=== PATIENT | male | born 1950 | race Caucasian/White ===

== ENCOUNTER 2024-01-02 02:31 | Inpatient (IN) | payer MEDICARE, OTHER ==
[~2024-01-02] VITALS: Ht 175.3 cm; Wt 95.3 kg
[2024-01-02] VITALS (8 sets, daily range): BP systolic 127–159; BP diastolic 80–94; PULSE 66–69; RESP 18–20; O2SAT 97–98
[2024-01-02] MEDS: NITROGLYCERIN 1GM OINT 1 INCH/1GM TD ONE (02:44)
[2024-01-02 02:47] LABS: BASOPHILS # (AUTO) 0.02 K/uL (0.00-0.20); BASOPHILS % (AUTO) 0.3 % (0.0-5.0); EOSINOPHILS # (AUTO) 0.13 K/uL (0.00-0.70); HEMATOCRIT 41.3 % (42-54); IMMATURE GRANULOCYTE ABSOLUTE 0.01 K/uL (0-1); LYMPHOCYTES # (AUTO) 1.3 K/uL (1.0-4.8); LYMPHOCYTES % (AUTO) 20.6 % (21.0-51.0); MEAN CORPUSCULAR HEMOGLOBIN 29.4 pg (27.0-33.0); MEAN CORPUSCULAR HGB CONC 33.2 g/dL (32.0-36.0); MEAN CORPUSCULAR VOLUME 88.6 fL (79-99); MONOCYTES # (AUTO) 0.7 K/uL (0.1-1.0); MONOCYTES % (AUTO) 10.5 % (3.0-13.0); NEUTROPHILS # (AUTO) 4.2 K/uL (1.8-7.7); NEUTROPHILS % (AUTO) 66.4 % (40.0-77.0); PLATELET COUNT (AUTO) 205 K/uL (130-400); RED BLOOD CELL COUNT(AUTO) 4.66 MIL/uL (4.50-6.20); RED CELL DISTRIBUTION WIDTH 13.7 % (11.0-15.5); WHITE BLOOD COUNT (AUTO) 6.4 K/uL (4.8-10.8)
[2024-01-02 02:57] LABS: CREATININE 2.2 mg/dL (0.5-1.5); POTASSIUM 3.4 mmol/L (3.5-5.1)
[2024-01-02 02:58] LABS: INR 0.94 (0.85-1.15); PROTHROMBIN TIME 10.9 SEC (9.6-11.6)
[2024-01-02 03:00] LABS: PARTIAL THROMBOPLASTIN TIME 28.2 SEC (26.3-35.5)
[2024-01-02 03:02] LABS: ALBUMIN 3.3 g/dL (3.5-5.0); BILIRUBIN,TOTAL 0.3 mg/dL (0.2-1.0)
[2024-01-02 03:13] LABS: B-TYPE NATRIURETIC PEPTIDE 685 pg/mL (0-100)
[2024-01-02] MEDS: FUROSEMIDE 40MG VIAL IV ONE (03:42)
[2024-01-02] MEDS: ACETAMINOPHEN 325 MG TAB ONE (03:44)
[2024-01-02] MEDS ORDERED: MELA10TA2 PO (04:00)
[2024-01-02] MEDS ORDERED: CARV6.25 PO (04:00)
[2024-01-02] MEDS ORDERED: CLOP75TA32 PO (04:00)
[2024-01-02] MEDS ORDERED: HYDR25TA67 PO (04:00)
[2024-01-02] MEDS ORDERED: CETI10TA57 PO (04:00)
[2024-01-02] MEDS ORDERED: PANT40TA54 PO (04:00)
[2024-01-02] MEDS ORDERED: CYAN100099 PO (04:00)
[2024-01-02] MEDS ORDERED: APIX5TAB PO (04:00)
[2024-01-02] MEDS ORDERED: ATOR40TA71 PO (04:00)
[2024-01-02] MEDS ORDERED: SERT-438 PO (04:00)
[2024-01-02] MEDS ORDERED: AMLO-258 PO (04:00)
[2024-01-02] MEDS ORDERED: TAMS-1 PO (04:00)
[2024-01-02] MEDS ORDERED: AEC81 PO (04:00)
[2024-01-02] MEDS: POTASSIUM BICARB/CIT AC 25 MEQ TABLET.EFF ONE (05:10)
[2024-01-02] MEDS: POTASSIUM BICARB/CIT AC 25 MEQ TABLET.EFF PO ONE (05:10)
[2024-01-02] MEDS ORDERED: ACETAMINOPHEN 325 MG TAB PO PRN ×2 (05:30)
[2024-01-02] MEDS ORDERED: GLUCAGON 1MG KIT 1 MG ML IM PRN (05:30)
[2024-01-02] MEDS ORDERED: MAGNESIUM 2GM PREMIX 50ML 50 ML IV PRN (05:30)
[2024-01-02] MEDS: NITROGLYCERIN 1GM OINT 1 INCH/1GM TD SCH (05:30)
[2024-01-02] MEDS ORDERED: DEXTROSE 50%-WATER 50 ML DISP.SYRIN IV PRN (05:30)
[2024-01-02] MEDS: HEPARIN 25,000 UNITS/250ML D5W 250 ML IV SCH (05:46)
[2024-01-02] MEDS: HEPARIN 5,000 UNIT VIAL IV PRN (05:46)
[2024-01-02 05:51] LABS: BASOPHILS # (AUTO) 0.02 K/uL (0.00-0.20); BASOPHILS % (AUTO) 0.4 % (0.0-5.0); EOSINOPHILS # (AUTO) 0.05 K/uL (0.00-0.70); EOSINOPHILS % (AUTO) 0.9 % (0.0-8.0); HEMATOCRIT 36.7 % (42-54); IMMATURE GRANULOCYTE ABSOLUTE 0.02 K/uL (0-1); LYMPHOCYTES # (AUTO) 1.3 K/uL (1.0-4.8); LYMPHOCYTES % (AUTO) 23.3 % (21.0-51.0); MEAN CORPUSCULAR HEMOGLOBIN 29.6 pg (27.0-33.0); MEAN CORPUSCULAR HGB CONC 34.1 g/dL (32.0-36.0); MEAN CORPUSCULAR VOLUME 86.8 fL (79-99); MONOCYTES # (AUTO) 0.5 K/uL (0.1-1.0); MONOCYTES % (AUTO) 9.5 % (3.0-13.0); NEUTROPHILS # (AUTO) 3.7 K/uL (1.8-7.7); NEUTROPHILS % (AUTO) 65.5 % (40.0-77.0); PLATELET COUNT (AUTO) 193 K/uL (130-400); RED BLOOD CELL COUNT(AUTO) 4.23 MIL/uL (4.50-6.20); RED CELL DISTRIBUTION WIDTH 13.7 % (11.0-15.5); WHITE BLOOD COUNT (AUTO) 5.6 K/uL (4.8-10.8)
[2024-01-02] MEDS: INSULIN HUMULIN R 100 UNIT/ML 3ML SQ SCH ×2 (06:00→20:17)
[2024-01-02] MEDS ORDERED: MELATONIN 5 MG TABLET PO PRN (07:00)
[2024-01-02] MEDS: ATORVASTATIN 40 MG TABLET PO SCH (08:55)
[2024-01-02] MEDS: CYANOCOBALAMIN (VITAMIN B-12) 1,000 MCG TABLET PO SCH (08:55)
[2024-01-02] MEDS: TAMSULOSIN HCL 0.4 MG CAP.ER.24H PO SCH (08:55)
[2024-01-02] MEDS: FAMOTIDINE 20MG VIAL IV SCH (08:55)
[2024-01-02] MEDS: ASPIRIN 81 MG EC TAB PO SCH (08:55)
[2024-01-02] MEDS: FUROSEMIDE 20MG VIAL IV SCH (08:56)
[2024-01-02] MEDS: CARVEDILOL 6.25 MG TABLET PO SCH (08:57)
[2024-01-02] MEDS: HYDRALAZINE 25MG TABLET PO SCH (08:59)
[2024-01-02 12:31] LABS: INR 1.02 (0.85-1.15); PROTHROMBIN TIME 11.8 SEC (9.6-11.6)
[2024-01-02 12:52] LABS: PARTIAL THROMBOPLASTIN TIME > 139.0 SEC (26.3-35.5)
[2024-01-02] MEDS: CLOPIDOGREL 75MG TAB PO SCH (13:47)
[2024-01-02] MEDS: VERAPAMIL HCL 80 MG TABLET PO SCH (13:48)
[2024-01-02] MEDS ORDERED: ATROPINE 1MG SYG IVP ONE (13:51)
[2024-01-02] MEDS: SERTRALINE HCL 50 MG TABLET PO SCH (20:08)
[2024-01-03] VITALS (84 sets, daily range): BP systolic 74–163; BP diastolic 30–111; PULSE 47–158; RESP 12–27; O2SAT 94–99
[2024-01-03] MEDS: HYDRALAZINE 20MG/ML VIAL IV PRN (03:05)
[2024-01-03] MEDS: MORPHINE 2 MG SYG IVP STA (04:07)
[2024-01-03] MEDS: MORPHINE 2 MG SYG ONE (04:07)
[2024-01-03] MEDS: NITROGLYCERIN 50MG/D5W 250ML 1 BOT ONE (04:10)
[2024-01-03] MEDS ORDERED: NITROGLYCERIN 50MG/D5W 250ML 250 BOT IV PRN (04:10)
[2024-01-03 04:21] LABS: BASOPHILS # (AUTO) 0.02 K/uL (0.00-0.20); BASOPHILS % (AUTO) 0.4 % (0.0-5.0); EOSINOPHILS # (AUTO) 0.09 K/uL (0.00-0.70); EOSINOPHILS % (AUTO) 1.8 % (0.0-8.0); HEMATOCRIT 37.4 % (42-54); IMMATURE GRANULOCYTE ABSOLUTE 0.01 K/uL (0-1); LYMPHOCYTES # (AUTO) 1.8 K/uL (1.0-4.8); MEAN CORPUSCULAR HEMOGLOBIN 29.3 pg (27.0-33.0); MEAN CORPUSCULAR HGB CONC 33.4 g/dL (32.0-36.0); MEAN CORPUSCULAR VOLUME 87.8 fL (79-99); MONOCYTES # (AUTO) 0.5 K/uL (0.1-1.0); MONOCYTES % (AUTO) 10.5 % (3.0-13.0); NEUTROPHILS # (AUTO) 2.5 K/uL (1.8-7.7); NEUTROPHILS % (AUTO) 51.1 % (40.0-77.0); PLATELET COUNT (AUTO) 172 K/uL (130-400); RED BLOOD CELL COUNT(AUTO) 4.26 MIL/uL (4.50-6.20); RED CELL DISTRIBUTION WIDTH 13.8 % (11.0-15.5)
[2024-01-03 04:46] LABS: B-TYPE NATRIURETIC PEPTIDE 634 pg/mL (0-100)
[2024-01-03 04:55] LABS: ALBUMIN 3.1 g/dL (3.5-5.0); BILIRUBIN,TOTAL 0.5 mg/dL (0.2-1.0); CREATININE 2.3 mg/dL (0.5-1.5); POTASSIUM 4.3 mmol/L (3.5-5.1); TOTAL PROTEIN, SERUM 6.5 g/dL (6.0-8.3)
[2024-01-03 05:32] LABS: MAGNESIUM 1.9 mg/dL (1.80-2.40)
[2024-01-03] MEDS: ONDANSETRON 4MG INJ IV PRN (05:45)
[2024-01-03] MEDS ORDERED: MAGNESIUM 2GM PREMIX 50ML 50 ML IV PRN (06:00)
[2024-01-03] MEDS: MORPHINE 2 MG SYG IVP ONE (06:01)
[2024-01-03] MEDS: 0.9%NACL 1000ML 1,000 ML IV ONE (06:18)
[2024-01-03] MEDS: AMIODARONE 150MG VIAL ONE (06:18)
[2024-01-03] MEDS: ATROPINE 1MG SYG IVP STA (06:28)
[2024-01-03] MEDS ORDERED: PHENYLEPHRINE HCL IV PRN (06:30)
[2024-01-03] MEDS ORDERED: PHENYLEPHRINE HCL 10 MG in 0.9% NACL 250ML 250 ML IV PRN (06:30)
[2024-01-03] MEDS ORDERED: MORPHINE 2 MG SYG IVP PRN ×2 (06:30→11:00)
[2024-01-03] MEDS ORDERED: NACL 0.9% IV PRN (06:30)
[2024-01-03] MEDS ORDERED: AMIODARONE 150MG VIAL 150 MG in DEXTROSE 5%-WATER 100 ML IV SCH (07:05)
[2024-01-03] MEDS ORDERED: MIDAZOLAM HCL 1 MG/ML 2ML VIAL ONE (07:12)
[2024-01-03] MEDS ORDERED: ATROPINE 1MG SYG IVP ONE (07:12)
[2024-01-03] MEDS ORDERED: FENTANYL CITRATE PF 50 MCG/1 ML 2ML VIAL ONE (07:12)
[2024-01-03] MEDS ORDERED: HEPARIN 10,000 UNIT/10ML (1,000 UNIT/ML) VIAL ONE (07:12)
[2024-01-03] MEDS ORDERED: IOHEXOL-350 75 ML VIAL IV ONE (07:12)
[2024-01-03] MEDS ORDERED: NITROGLYCERIN 50MG VIAL ONE (07:13)
[2024-01-03] MEDS ORDERED: LIDOCAINE HCL 400MG/20ML VIAL ONE (07:13)
[2024-01-03] MEDS ORDERED: AMIODARONE 900MG VIAL 360 MG in DEXTROSE 5%-WATER 200 ML IV SCH (07:15)
[2024-01-03] MEDS ORDERED: LIDOCAINE 2G/250ML 0 ML IV ONE (07:31)
[2024-01-03] MEDS ORDERED: LIDOCAINE PF 100MG/5ML (2%) SYRINGE 5ML ONE (07:37)
[2024-01-03] MEDS ORDERED: TICAGRELOR 90 MG TABLET ONE (07:49)
[2024-01-03] MEDS: AMIODARONE 900MG VIAL IV ONE (08:00)
[2024-01-03] MEDS ORDERED: PHENYLEPHRINE HCL 10 MG/ML 1ML VIAL IV ONE (08:08)
[2024-01-03] MEDS ORDERED: EPTIFIBATIDE 2 MG/ML 10 ML VIAL IVP ONE ×2 (08:26→09:00)
[2024-01-03 10:32] LABS: ABG HCO3 22.2 mmol/L (21.0-28.0); ABG OXYGEN SATURATION 98.7 % (95.0-99.0); ABG PCO2 45 mmHg (35-48); ABG PH 7.311 (7.35-7.450); CARBON MONOXIDE 0.2; HHb 1.3; PO2, ARTERIAL BG 163.2 mmHg (83.0-108.0); VENT MODE, BG PNRM (ROOM AIR)
[2024-01-03] MEDS: LIDOCAINE 2G/250ML 250 ML IV PRN (11:00)
[2024-01-03] MEDS ORDERED: 0.9%NACL 50ML IV SCH (11:30)
[2024-01-03] MEDS: 0.9%NACL 1000ML 1,000 ML IV SCH (11:31)
[2024-01-03] MEDS: CALCIUM GLUC 1GM/10ML VIAL IVPB SCH (11:47)
[2024-01-03] MEDS: METOPROLOL TARTRATE 1 MG/ML 5ML VIAL IV ONE (11:47)
[2024-01-03] MEDS: PHARMACY COMMUNICATION MISC SCH ×2 (13:00→15:30)
[2024-01-03] MEDS: AMIODARONE 540 MG in DEXTROSE 5%-WATER 300 ML IV SCH (14:05)
[2024-01-03] MEDS: METOPROLOL TARTRATE 50 MG TAB PO SCH (14:14)
[2024-01-03 15:25] LABS: INR 0.94 (0.85-1.15)
[2024-01-03 15:27] LABS: MAGNESIUM 2.5 mg/dL (1.80-2.40); PARTIAL THROMBOPLASTIN TIME 32.5 SEC (26.3-35.5); POTASSIUM 4.7 mmol/L (3.5-5.1)
[2024-01-03 17:16] LABS: SARS-CoV-2, RNA, NAAT NEGATIVE SARS CoV-2 (NEGATIVE)
[2024-01-03 17:24] LABS: INFLUENZA TYPE A Negative For Type A (NEGATIVE); INFLUENZA TYPE B Negative For Type B (NEGATIVE)
[2024-01-03] MEDS: TICAGRELOR 90 MG TABLET PO SCH (20:17)
[2024-01-03 21:44] LABS: INR 0.94 (0.85-1.15); PROTHROMBIN TIME 10.9 SEC (9.6-11.6)
[2024-01-03 21:45] LABS: PARTIAL THROMBOPLASTIN TIME 43.7 SEC (26.3-35.5)
[2024-01-03] MEDS ORDERED: HEPARIN PF LOCK 500 UNIT/5ML IV ONE (22:00)
[2024-01-03] MEDS: HEPARIN 5,000 UNIT VIAL IV ONE (22:37)
[2024-01-04] VITALS (28 sets, daily range): BP systolic 110–164; BP diastolic 55–87; PULSE 53–98; RESP 12–22; O2SAT 96–100
[2024-01-04 04:01] LABS: HEMATOCRIT 35.1 % (42-54); MEAN CORPUSCULAR HEMOGLOBIN 28.7 pg (27.0-33.0); MEAN CORPUSCULAR HGB CONC 31.6 g/dL (32.0-36.0); MEAN CORPUSCULAR VOLUME 90.7 fL (79-99); RED BLOOD CELL COUNT(AUTO) 3.87 MIL/uL (4.50-6.20); RED CELL DISTRIBUTION WIDTH 14.5 % (11.0-15.5)
[2024-01-04 04:13] LABS: INR 0.98 (0.85-1.15); PROTHROMBIN TIME 11.4 SEC (9.6-11.6)
[2024-01-04 04:26] LABS: ALBUMIN 2.9 g/dL (3.5-5.0); BILIRUBIN,TOTAL 0.6 mg/dL (0.2-1.0); CREATININE 2.9 mg/dL (0.5-1.5); MAGNESIUM 2.5 mg/dL (1.80-2.40); POTASSIUM 4.8 mmol/L (3.5-5.1); TOTAL PROTEIN, SERUM 6.1 g/dL (6.0-8.3)
[2024-01-04 04:35] LABS: PARTIAL THROMBOPLASTIN TIME > 139.0 SEC (26.3-35.5)
[2024-01-04 08:52] LABS: ABG BASE EXCESS -3.4 mmol/L (-2.0-3.0); ABG HCO3 24.5 mmol/L (21.0-28.0); ABG OXYGEN SATURATION 99.1 % (95.0-99.0); ABG PCO2 56 mmHg (35-48); ABG PH 7.261 (7.35-7.450); PO2, ARTERIAL BG 189.9 mmHg (83.0-108.0); VENT MODE, BG NRBM (ROOM AIR)
[2024-01-04 09:54] LABS: INR 0.98 (0.85-1.15); PROTHROMBIN TIME 11.4 SEC (9.6-11.6)
[2024-01-04 10:37] LABS: PARTIAL THROMBOPLASTIN TIME > 139.0 SEC (26.3-35.5)
[2024-01-04] MEDS: POLYETHYLENE GLYCOL 3350 17 GM POWD.PACK PO ONE (11:08)
[2024-01-04 14:26] LABS: ABG BASE EXCESS -3.8 mmol/L (-2.0-3.0); ABG HCO3 22.4 mmol/L (21.0-28.0); ABG OXYGEN SATURATION 95.3 % (95.0-99.0); ABG PCO2 45 mmHg (35-48); ABG PH 7.315 (7.35-7.450); PO2, ARTERIAL BG 82.7 mmHg (83.0-108.0); VENT MODE, BG NC 2L (ROOM AIR)
[2024-01-04] MEDS: 0.9%NACL 1000ML 1,000 ML IV SCH (14:55)
[2024-01-04 15:41] LABS: APPEARANCE,URINE CLEAR (CLEAR); BILIRUBIN,URINE NEGATIVE (NEGATIVE); COLOR,URINE LIGHT-YELLOW (YELLOW); GLUCOSE, URINE (UA) 30 mg/dL (NEGATIVE); KETONES,URINE NEGATIVE (NEGATIVE); LEUKOCYTE ESTERASE ,URINE NEGATIVE Leu/uL (NEGATIVE); NITRATE,URINE NEGATIVE (NEGATIVE); OCCULT BLOOD,URINE NEGATIVE (NEGATIVE); PH,URINE 5.5 (5.0-8.0); PROTEIN,URINE 70 mg/dL (NEGATIVE); UROBILINOGEN,URINE 0.2 mg/dL (0.2-1.0)
[2024-01-04 15:44] LABS: ADD UA MICROSCOPIC YES
[2024-01-04 15:46] LABS: BACTERIA,URINE RARE /HPF (None Seen); MUCUS,URINE RARE LPF (None Seen); OTHER CASTS, URINE 1 /LPF (None Seen); RBC,URINE 0-1 /HPF (0-1); SQUAMOUS EPITHELIAL CELL,UR RARE /HPF (0-2); WBC,URINE 0-1 /HPF (0-1); YEAST,URINE BUDDING FEW /HPF (None Seen)
[2024-01-04] MEDS: LIDOCAINE HCL MPF 1% 5ML VIAL ONE (18:29)
[2024-01-04] MEDS: LIDOCAINE HCL-MPF 1% 2ML VIAL ONE (18:30)
[2024-01-04 19:10] LABS: INR 0.96 (0.85-1.15); PROTHROMBIN TIME 11.2 SEC (9.6-11.6)
[2024-01-04 19:12] LABS: PARTIAL THROMBOPLASTIN TIME 30.7 SEC (26.3-35.5)
[2024-01-04 19:41] LABS: MAGNESIUM 2.4 mg/dL (1.80-2.40); POTASSIUM 4.5 mmol/L (3.5-5.1)
[2024-01-04] MEDS: METOPROLOL TARTRATE 25 MG TAB PO SCH (21:13)
[2024-01-04 21:38] LABS: INR 0.97 (0.85-1.15); PROTHROMBIN TIME 11.3 SEC (9.6-11.6)
[2024-01-04 21:39] LABS: PARTIAL THROMBOPLASTIN TIME 28.9 SEC (26.3-35.5)
[2024-01-04] MEDS: AMIODARONE 900MG VIAL 360 MG in DEXTROSE 5%-WATER 200 ML IV SCH (22:47)
[2024-01-05] VITALS (43 sets, daily range): BP systolic 132–194; BP diastolic 64–113; PULSE 59–98; RESP 13–33; O2SAT 96–97
[2024-01-05 05:05] LABS: HEMATOCRIT 34.8 % (42-54); MEAN CORPUSCULAR HEMOGLOBIN 29.6 pg (27.0-33.0); MEAN CORPUSCULAR VOLUME 89.7 fL (79-99); PLATELET COUNT (AUTO) 136 K/uL (130-400); RED BLOOD CELL COUNT(AUTO) 3.88 MIL/uL (4.50-6.20)
[2024-01-05 05:31] LABS: BILIRUBIN,TOTAL 0.8 mg/dL (0.2-1.0); CREATININE 3.2 mg/dL (0.5-1.5); MAGNESIUM 2.4 mg/dL (1.80-2.40); PHOSPHORUS 5.9 mg/dL (2.5-4.9); POTASSIUM 4.6 mmol/L (3.5-5.1); TOTAL PROTEIN, SERUM 6.3 g/dL (6.0-8.3); URIC ACID 7.2 mg/dL (2.6-7.2)
[2024-01-05] MEDS: LACTULOSE 20 GM/30 ML UDCUP PO PRN (05:38)
[2024-01-05] MEDS: AMIODARONE 900MG VIAL 540 MG in DEXTROSE 5%-WATER 300 ML IV ONE (05:38)
[2024-01-05 06:10] LABS: LYMPHOCYTES % (MANUAL) 16 % (22-44); MONOCYTES % (MANUAL) 13 % (2-9); SEGMENTED NEUTROPHILS % 71 % (40-70); TOTAL CELLS COUNTED 100
[2024-01-05 06:11] LABS: MAN.DIFF COMMENT-IMPRESSION MANUAL DIFFERENTIAL; PLATELET MORPHOLOGY COMMENT ADEQUATE; WBC MORPHOLOGY SMUDGE CELLS 1+
[2024-01-05 07:58] LABS: ABG BASE EXCESS -3.6 mmol/L (-2.0-3.0); ABG HCO3 20.2 mmol/L (21.0-28.0); ABG OXYGEN SATURATION 96.4 % (95.0-99.0); ABG PCO2 34 mmHg (35-48); ABG PH 7.399 (7.35-7.450); DEVICE COMMENT SYLVIA RN LR; PO2, ARTERIAL BG 83.6 mmHg (83.0-108.0); VENT MODE, BG HFNC (ROOM AIR)
[2024-01-05] MEDS: Vitamin B Complex/Vit C/Folic Acid PO SCH (09:04)
[2024-01-05] MEDS: POLYETHYLENE GLYCOL 3350 17 GM POWD.PACK PO SCH (09:05)
[2024-01-05 16:44] LABS: CHLORIDE,URINE RANDOM 93 mmol/L (110-250); CREATININE,URINE RANDOM 30 mg/dL (30-135); POTASSIUM,URINE RANDOM 26 mmol/L (25-125); SODIUM,URINE RANDOM 73 mmol/l (40-220)
[2024-01-05 18:09] LABS: CHOLESTEROL 104 mg/dL (<200); HDL CHOLESTEROL 51 mg/dL (29-71); LDL DIRECT 51 mg/dL (0-99); TRIGLYCERIDES 91 mg/dL (30-200)
[2024-01-05 19:17] LABS: HEMOGLOBIN A1C 7.9 % (4.0-6.0)
[2024-01-05] MEDS: METOPROLOL TARTRATE 25 MG TAB PO SCH (21:12)
[2024-01-06] VITALS (71 sets, daily range): BP systolic 131–181; BP diastolic 64–100; PULSE 53–89; RESP 6–32; O2SAT 93–98
[2024-01-06 02:22] LABS: EOSINOPHILS # (AUTO) 0.04 K/uL (0.00-0.70); EOSINOPHILS % (AUTO) 0.7 % (0.0-8.0); HEMATOCRIT 31.3 % (42-54); IMMATURE GRANULOCYTE ABSOLUTE 0.02 K/uL (0-1); LYMPHOCYTES # (AUTO) 0.9 K/uL (1.0-4.8); LYMPHOCYTES % (AUTO) 14.4 % (21.0-51.0); MEAN CORPUSCULAR HEMOGLOBIN 29.4 pg (27.0-33.0); MEAN CORPUSCULAR HGB CONC 33.9 g/dL (32.0-36.0); MEAN CORPUSCULAR VOLUME 86.9 fL (79-99); MONOCYTES # (AUTO) 0.7 K/uL (0.1-1.0); NEUTROPHILS # (AUTO) 4.4 K/uL (1.8-7.7); NEUTROPHILS % (AUTO) 73.6 % (40.0-77.0); PLATELET COUNT (AUTO) 137 K/uL (130-400); RED CELL DISTRIBUTION WIDTH 13.9 % (11.0-15.5)
[2024-01-06 02:36] LABS: BILIRUBIN,TOTAL 0.7 mg/dL (0.2-1.0); CREATININE 2.9 mg/dL (0.5-1.5); MAGNESIUM 2.2 mg/dL (1.80-2.40); PHOSPHORUS 4.9 mg/dL (2.5-4.9); POTASSIUM 3.8 mmol/L (3.5-5.1); TOTAL PROTEIN, SERUM 6.3 g/dL (6.0-8.3)
[2024-01-06] MEDS: NITROGLYCERIN 0.4 MG SL TAB SL ONE (06:48)
[2024-01-06] MEDS ORDERED: NITROGLYCERIN 0.4 MG SL TAB SL PRN (07:00)
[2024-01-06] MEDS: FUROSEMIDE 20MG VIAL IV SCH (07:50)
[2024-01-06] MEDS: AMLODIPINE 2.5 MG TAB PO SCH (07:51)
[2024-01-06] MEDS: FUROSEMIDE 20MG VIAL ONE (07:51)
[2024-01-06] MEDS: AMIODARONE 200 MG TABLET PO SCH (07:51)
[2024-01-06] MEDS ORDERED: METOPROLOL TARTRATE 25 MG TAB PO SCH (09:00)
[2024-01-06] MEDS: METOPROLOL TARTRATE 25 MG TAB PO SCH (09:28)
[2024-01-06] MEDS: LACTULOSE 20 GM/30 ML UDCUP PO ONE (12:08)
[2024-01-06] MEDS: INSULIN GLARGINE 100 UNITS/ML 10 ML VIAL SQ SCH (19:37)
[2024-01-07] VITALS (44 sets, daily range): BP systolic 100–176; BP diastolic 34–99; PULSE 54–69; RESP 13–23; O2SAT 94–100
[2024-01-07 04:47] LABS: BASOPHILS # (AUTO) 0.01 K/uL (0.00-0.20); BASOPHILS % (AUTO) 0.2 % (0.0-5.0); EOSINOPHILS # (AUTO) 0.03 K/uL (0.00-0.70); EOSINOPHILS % (AUTO) 0.5 % (0.0-8.0); HEMATOCRIT 34.6 % (42-54); IMMATURE GRANULOCYTE ABSOLUTE 0.03 K/uL (0-1); MEAN CORPUSCULAR HEMOGLOBIN 29.5 pg (27.0-33.0); MEAN CORPUSCULAR HGB CONC 32.9 g/dL (32.0-36.0); MEAN CORPUSCULAR VOLUME 89.6 fL (79-99); MONOCYTES # (AUTO) 0.8 K/uL (0.1-1.0); MONOCYTES % (AUTO) 12.7 % (3.0-13.0); NEUTROPHILS # (AUTO) 4.2 K/uL (1.8-7.7); NEUTROPHILS % (AUTO) 70.1 % (40.0-77.0); PLATELET COUNT (AUTO) 150 K/uL (130-400); RED BLOOD CELL COUNT(AUTO) 3.86 MIL/uL (4.50-6.20); RED CELL DISTRIBUTION WIDTH 13.7 % (11.0-15.5)
[2024-01-07 05:15] LABS: BILIRUBIN,TOTAL 0.9 mg/dL (0.2-1.0); CREATININE 2.9 mg/dL (0.5-1.5); MAGNESIUM 2.3 mg/dL (1.80-2.40); POTASSIUM 3.3 mmol/L (3.5-5.1); TOTAL PROTEIN, SERUM 6.6 g/dL (6.0-8.3)
[2024-01-07] MEDS: KCL 20 MEQ ERTAB PO PRN (06:18)
[2024-01-07] MEDS: KCL 20 MEQ ERTAB PO ONE (06:21)
[2024-01-07] MEDS: TAMSULOSIN HCL 0.4 MG CAP.ER.24H PO SCH (12:25)
[2024-01-07] MEDS: POTASSIUM CHLORIDE 20MEQ/100ML 100 ML IV ONE (13:30)
[2024-01-07] MEDS ORDERED: HEPARIN 5,000 UNIT VIAL SQ SCH (14:00)
[2024-01-07] MEDS ORDERED: BISACODYL 10 MG SUPP.RECT RC ONE ×2 (14:30→15:00)
[2024-01-07 15:11] LABS: MAGNESIUM 2.2 mg/dL (1.80-2.40); POTASSIUM 3.9 mmol/L (3.5-5.1)
[2024-01-07] MEDS: BISACODYL 10 MG SUPP.RECT RC ONE (15:11)
[2024-01-08] VITALS (24 sets, daily range): BP systolic 106–162; BP diastolic 48–90; PULSE 56–102; RESP 14–32; O2SAT 95–98
[2024-01-08 02:10] LABS: HEMATOCRIT 34.3 % (42-54); MEAN CORPUSCULAR HEMOGLOBIN 29.3 pg (27.0-33.0); MEAN CORPUSCULAR HGB CONC 34.1 g/dL (32.0-36.0); MEAN CORPUSCULAR VOLUME 85.8 fL (79-99); PLATELET COUNT (AUTO) 177 K/uL (130-400); RED CELL DISTRIBUTION WIDTH 13.6 % (11.0-15.5); WHITE BLOOD COUNT (AUTO) 6.2 K/uL (4.8-10.8)
[2024-01-08 02:23] LABS: ALBUMIN 2.9 g/dL (3.5-5.0); BILIRUBIN,TOTAL 0.9 mg/dL (0.2-1.0); CREATININE 2.9 mg/dL (0.5-1.5); MAGNESIUM 2.2 mg/dL (1.80-2.40); POTASSIUM 3.3 mmol/L (3.5-5.1); TOTAL PROTEIN, SERUM 6.5 g/dL (6.0-8.3)
[2024-01-08] MEDS: POTASSIUM CHLORIDE 20MEQ/100ML 100 ML IV PRN (02:27)
[2024-01-08 02:34] LABS: LYMPHOCYTES % (MANUAL) 16 % (22-44); MAN.DIFF COMMENT-IMPRESSION MANUAL DIFFERENTIAL; MONOCYTES % (MANUAL) 11 % (2-9); SEGMENTED NEUTROPHILS % 73 % (40-70); TOTAL CELLS COUNTED 100
[2024-01-08 02:36] LABS: PLATELET MORPHOLOGY COMMENT ADEQUATE
[2024-01-08] MEDS: ISOSORBIDE DINITRATE 10MG TAB PO SCH (09:31)
[2024-01-08] MEDS: KCL 20 MEQ ERTAB PO ONE (12:07)
[2024-01-08] MEDS: FUROSEMIDE 40 MG TABLET PO ONE (12:34)
[2024-01-08] MEDS: HYDRALAZINE 25MG TABLET PO SCH (14:12)
[2024-01-08] MEDS: FUROSEMIDE 40 MG TABLET PO SCH (17:38)
[2024-01-08] MEDS: INSULIN GLARGINE 100 UNITS/ML 10 ML VIAL SQ SCH (21:06)
[2024-01-09] VITALS (10 sets, daily range): BP systolic 122–140; BP diastolic 65–78; PULSE 58–86; RESP 16–20; O2SAT 96–100
[2024-01-09 05:13] LABS: HEMATOCRIT 33.8 % (42-54); MEAN CORPUSCULAR HEMOGLOBIN 29.8 pg (27.0-33.0); MEAN CORPUSCULAR HGB CONC 33.7 g/dL (32.0-36.0); MEAN CORPUSCULAR VOLUME 88.5 fL (79-99); PLATELET COUNT (AUTO) 182 K/uL (130-400); RED BLOOD CELL COUNT(AUTO) 3.82 MIL/uL (4.50-6.20); RED CELL DISTRIBUTION WIDTH 13.5 % (11.0-15.5); WHITE BLOOD COUNT (AUTO) 6.6 K/uL (4.8-10.8)
[2024-01-09 05:33] LABS: ALBUMIN 2.9 g/dL (3.5-5.0); BILIRUBIN,TOTAL 0.7 mg/dL (0.2-1.0); CREATININE 3.2 mg/dL (0.5-1.5); MAGNESIUM 2.2 mg/dL (1.80-2.40); POTASSIUM 3.7 mmol/L (3.5-5.1); TOTAL PROTEIN, SERUM 6.4 g/dL (6.0-8.3)
[2024-01-09 05:56] LABS: BAND NEUTROPHILS % (MANUAL) 6 % (0-2); EOSINOPHILS % (MANUAL) 1 % (1-6); LYMPHOCYTES % (MANUAL) 16 % (22-44); MONOCYTES % (MANUAL) 9 % (2-9); SEGMENTED NEUTROPHILS % 68 % (40-70); TOTAL CELLS COUNTED 100
[2024-01-09 05:57] LABS: MAN.DIFF COMMENT-IMPRESSION MANUAL DIFFERENTIAL; WBC MORPHOLOGY CONSISTENT W/DIFF
[2024-01-09 05:58] LABS: PLATELET MORPHOLOGY COMMENT PLT CLUMPS PRESENT
[2024-01-09] MEDS: INSULIN HUMULIN R 100 UNIT/ML 3ML SQ SCH (16:31)
[2024-01-09] MEDS: APIXABAN 5 MG TABLET PO SCH (21:14)
[2024-01-09] MEDS: INSULIN GLARGINE 100 UNITS/ML 10 ML VIAL SQ SCH (21:56)
[2024-01-10] VITALS (11 sets, daily range): BP systolic 122–137; BP diastolic 71–76; PULSE 57–76; RESP 16–22; O2SAT 96–100
[2024-01-10 05:53] LABS: HEMATOCRIT 34.8 % (42-54); MEAN CORPUSCULAR HEMOGLOBIN 29.4 pg (27.0-33.0); MEAN CORPUSCULAR HGB CONC 33.3 g/dL (32.0-36.0); MEAN CORPUSCULAR VOLUME 88.3 fL (79-99); RED BLOOD CELL COUNT(AUTO) 3.94 MIL/uL (4.50-6.20); RED CELL DISTRIBUTION WIDTH 13.4 % (11.0-15.5); WHITE BLOOD COUNT (AUTO) 6.8 K/uL (4.8-10.8)
[2024-01-10 06:17] LABS: ALBUMIN 2.8 g/dL (3.5-5.0); BILIRUBIN,TOTAL 0.7 mg/dL (0.2-1.0); CREATININE 2.7 mg/dL (0.5-1.5); MAGNESIUM 2.3 mg/dL (1.80-2.40); PHOSPHORUS 4.8 mg/dL (2.5-4.9); POTASSIUM 3.8 mmol/L (3.5-5.1); TOTAL PROTEIN, SERUM 6.6 g/dL (6.0-8.3)
[2024-01-11 03:37] VITALS: BP 134/75; PULSE 68; RESP 16
[2024-01-11 04:38] LABS: HEMATOCRIT 33.8 % (42-54); MEAN CORPUSCULAR HEMOGLOBIN 29.9 pg (27.0-33.0); MEAN CORPUSCULAR HGB CONC 34.6 g/dL (32.0-36.0); MEAN CORPUSCULAR VOLUME 86.4 fL (79-99); RED BLOOD CELL COUNT(AUTO) 3.91 MIL/uL (4.50-6.20); RED CELL DISTRIBUTION WIDTH 13.5 % (11.0-15.5); WHITE BLOOD COUNT (AUTO) 6.8 K/uL (4.8-10.8)
[2024-01-11 04:56] LABS: ALBUMIN 2.8 g/dL (3.5-5.0); BILIRUBIN,TOTAL 0.5 mg/dL (0.2-1.0); CREATININE 2.7 mg/dL (0.5-1.5); MAGNESIUM 2.2 mg/dL (1.80-2.40); POTASSIUM 3.3 mmol/L (3.5-5.1); TOTAL PROTEIN, SERUM 6.7 g/dL (6.0-8.3)
[2024-01-11 08:08] VITALS: BP 134/79; PULSE 64; RESP 16
[2024-01-11 09:10] VITALS: PULSE 66; PULSE 82; RESP 18; RESP 20; O2SAT 96; O2SAT 98
[2024-01-11 09:15] VITALS: O2SAT 97
[2024-01-11 12:00] VITALS: BP 138/73; PULSE 62; RESP 18
[2024-01-11 13:39] VITALS: BP 130/69; PULSE 61
[2024-01-11] MEDS: KCL 20 MEQ ERTAB PO ONE (14:26)
[2024-01-11] MEDS ORDERED: INSLAN SQ (14:29)
[2024-01-11] MEDS ORDERED: HYDR25 PO (14:29)
[2024-01-11] MEDS ORDERED: ATOR40TA71 PO (14:29)
[2024-01-11] MEDS ORDERED: ISOS10TA4 PO (14:29)
[2024-01-11] MEDS ORDERED: Nitroglycerin 0.4MG Sl Tab SL (14:29)
[2024-01-11] MEDS ORDERED: AMIO200T44 PO (14:29)
[2024-01-11] MEDS ORDERED: TICA90TA PO (14:29)
[2024-01-11] MEDS ORDERED: METO25 PO (14:29)
[2024-01-11] MEDS ORDERED: FURO40TA7 PO (14:29)
[2024-01-11] MEDS ORDERED: APIX5TAB PO (14:29)
[2024-01-11] MEDS ORDERED: AEC81 PO (14:29)
[2024-01-11] MEDS ORDERED: AMLO2.5T2 PO (14:29)
[2024-01-11] MEDS ORDERED: NITR0.4T50 SL (14:30)
[2024-01-11] MEDS ORDERED: POTA-79 PO (14:43)
== END 2024-01-11 15:47 | disposition home or self-care (01) | DRG 321 ==
LOC: EDH 02:31 → EDHIP 05:15 → 2DH 06:12 → 2CH 01-03 04:13 → 2AH 01-08 15:00
PROVIDERS: ADMIT Internal Medicine; ATTEND Internal Medicine
PROC: 027035Z Dilation of Coronary Artery, One Artery with Two Drug-eluting Intraluminal Devices, Percutaneous Approach (ICD-10-PCS; principal; 2024-01-03)
PROC: 4A023N7 Measurement of Cardiac Sampling and Pressure, Left Heart, Percutaneous Approach (ICD-10-PCS; 2024-01-03)
PROC: B2111ZZ Fluoroscopy of Multiple Coronary Arteries using Low Osmolar Contrast (ICD-10-PCS; 2024-01-03)
PROC: 5A09357 Assistance with Respiratory Ventilation, Less than 24 Consecutive Hours, Continuous Positive Airway Pressure (ICD-10-PCS; 2024-01-03)
PROC: 02HV33Z Insertion of Infusion Device into Superior Vena Cava, Percutaneous Approach (ICD-10-PCS; 2024-01-04)
PROC: B548ZZA Ultrasonography of Superior Vena Cava, Guidance (ICD-10-PCS; 2024-01-04)
PROC: 5A0955A Assistance with Respiratory Ventilation, Greater than 96 Consecutive Hours, High Flow/Velocity Cannula (ICD-10-PCS; 2024-01-04)
DX: I21.4 Non-ST elevation (NSTEMI) myocardial infarction (principal); I50.43 Acute on chronic combined systolic (congestive) and diastolic (congestive) heart failure; R57.0 Cardiogenic shock; J96.01 Acute respiratory failure with hypoxia; I47.29 Other ventricular tachycardia; N17.9 Acute kidney failure, unspecified; I69.351 Hemiplegia and hemiparesis following cerebral infarction affecting right dominant side; E87.3 Alkalosis; I13.0 Hypertensive heart and chronic kidney disease with heart failure and stage 1 through stage 4 chronic kidney disease, or unspecified chronic kidney disease; N18.4 Chronic kidney disease, stage 4 (severe); I48.0 Paroxysmal atrial fibrillation; E87.6 Hypokalemia; D64.9 Anemia, unspecified; E66.01 Morbid (severe) obesity due to excess calories; I25.5 Ischemic cardiomyopathy; C61 Malignant neoplasm of prostate; E11.22 Type 2 diabetes mellitus with diabetic chronic kidney disease; E11.65 Type 2 diabetes mellitus with hyperglycemia; E78.5 Hyperlipidemia, unspecified; G47.33 Obstructive sleep apnea (adult) (pediatric); I25.10 Atherosclerotic heart disease of native coronary artery without angina pectoris; I34.0 Nonrheumatic mitral (valve) insufficiency; I49.3 Ventricular premature depolarization; K59.00 Constipation, unspecified; Z79.01 Long term (current) use of anticoagulants; I25.2 Old myocardial infarction; Z68.33 Body mass index [BMI] 33.0-33.9, adult; Z79.02 Long term (current) use of antithrombotics/antiplatelets; Z79.4 Long term (current) use of insulin; Z79.82 Long term (current) use of aspirin; Z79.899 Other long term (current) drug therapy; Z87.820 Personal history of traumatic brain injury; Z90.49 Acquired absence of other specified parts of digestive tract
CPT/HCPCS: 36415; 36600; 71045; 76770; 80053; 80061; 81001; 82306; 82330; 82435; 82436; 82570; 82803; 82947; 82948; 83036; 83605; 83735; 83880; 83935; 84100; 84132; 84133; 84295; 84300; 84484; 84550; 85018; 85025; 85027; 85347; 85610; 85730; 87635; 87804; 93005; 93306; 93308; 93356; 93454; 94660; 94760; 96372; 99156; 99157; 99291; C1751; C1760; C1769; C1887; C1894; C9600; C9606; G0378; J0282; J0360; J0461; J0610; J1327; J1642; J1644; J1815; J1940; J2001; J2250; J2270; J2371; J2405; J3010; J3475; J3480; J3490; J7050; J7060; Q9967; C1725; C1874

== ENCOUNTER → 2024-01-28 | Outpatient (CLI) | payer MEDICARE ==
[~2024-01-28] MED LIST: AEC81 PO; AMIO200T44 PO; AMLO2.5T2 PO; APIX5TAB PO; ATOR40TA71 PO; CETI10TA57 PO; CYAN100099 PO; FURO40TA7 PO; HYDR25 PO; INSLAN SQ; ISOS10TA4 PO; MELA10TA2 PO; METO25 PO; NITR0.4T50 SL; Nitroglycerin 0.4MG Sl Tab SL; PANT40TA54 PO; POTA-79 PO; SERT-438 PO; TAMS-1 PO; TICA90TA PO
[2024-01-28 12:05] LABS: BASOPHILS # (AUTO) 0.02 K/uL (0.00-0.20); BASOPHILS % (AUTO) 0.4 % (0.0-5.0); EOSINOPHILS # (AUTO) 0.28 K/uL (0.00-0.70); EOSINOPHILS % (AUTO) 5.1 % (0.0-8.0); HEMATOCRIT 36.1 % (42-54); IMMATURE GRANULOCYTE ABSOLUTE 0.02 K/uL (0-1); LYMPHOCYTES # (AUTO) 1.7 K/uL (1.0-4.8); LYMPHOCYTES % (AUTO) 30.2 % (21.0-51.0); MEAN CORPUSCULAR HGB CONC 33.2 g/dL (32.0-36.0); MEAN CORPUSCULAR VOLUME 87.2 fL (79-99); MONOCYTES # (AUTO) 0.7 K/uL (0.1-1.0); MONOCYTES % (AUTO) 13.2 % (3.0-13.0); NEUTROPHILS # (AUTO) 2.8 K/uL (1.8-7.7); NEUTROPHILS % (AUTO) 50.7 % (40.0-77.0); PLATELET COUNT (AUTO) 174 K/uL (130-400); RED BLOOD CELL COUNT(AUTO) 4.14 MIL/uL (4.50-6.20); WHITE BLOOD COUNT (AUTO) 5.5 K/uL (4.8-10.8)
[2024-01-28 12:29] LABS: CREATININE 2.8 mg/dL (0.5-1.3); POTASSIUM 4.2 mmol/L (3.5-5.1)
== END | disposition home or self-care (01) ==
LOC: LAB 11:20
PROVIDERS: ATTEND Internal Medicine Cardiovascular Disease
DX: R06.00 Dyspnea, unspecified (principal)
CPT/HCPCS: 36415; 80048; 83880; 85025

== ENCOUNTER → 2025-01-02 | Outpatient (CLI) | payer OTHER ==
[~2025-01-02] MED LIST changes: +POTA-364 PO; -POTA-79 PO
[2025-01-02 12:38] LABS: ALBUMIN 3.5 g/dL (3.5-5.0); BILIRUBIN,TOTAL 0.3 mg/dL (0.2-1.0); CREATININE 3.1 mg/dL (0.5-1.3); MAGNESIUM 2.1 mg/dL (1.80-2.40); POTASSIUM 3.7 mmol/L (3.5-5.1); TOTAL PROTEIN, SERUM 7.5 g/dL (6.0-8.3)
== END | disposition home or self-care (01) ==
LOC: LAB 10:44
PROVIDERS: ATTEND Internal Medicine Cardiovascular Disease
DX: I25.10 Atherosclerotic heart disease of native coronary artery without angina pectoris (principal)
CPT/HCPCS: 36415; 80053; 83735; 83880